=== PATIENT | male | born 1955 | race Caucasian/White ===

== ENCOUNTER 2016-12-25 15:18 | Emergency (ER) | payer OTHER ==
[2016-12-25] MEDS ORDERED: DIPH,PERTUSS(ACELL),TET VAC/PF 0.5 ML DISP.SYRIN IM ONE (15:31)
[2016-12-25] MEDS ORDERED: CEPHALEXIN 250 MG CAPSULE ONE (17:00)
[2016-12-25] MEDS ORDERED: CEPHALEXIN 250 MG CAPSULE PO ONE (17:34)
--- NOTE | 2016-12-25 17:41 | ED Physician Documentation ---
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 The rest of the lac is very superficial. a small area superficial skin appears to be missing. Onset: hours ( there was reportedly very little bleeding.) Timing: still present Severity: mild, moderate - ROS CONST: no problems EYES/ENT: none CVS/RESP: none GI/: none MS/SKIN/LYMPH: none NEURO/PSYCH: denies: headache, fainting, dizziness, tingling, numbness - PAST HX Past History: none Other History: none Surgeries/Procedures: other (cataracts) Immunizations: denies: UTD Allergies/Adverse Reactions: Allergies Allergy/AdvReac Type Severity Reaction Status Date / Time codeine Allergy Abdominal Verified 12/25/16 15:53 Pain Penicillins Allergy Abdominal Verified 12/25/16 15:53 Pain Home Medications: Ambulatory Orders Medication Instructions Recorded Cephalexin [Keflex] 500 mg PO QID #40 capsule 12/25/16 - SOCIAL HX Smoking History: non-smoker Alcohol Use: occasionally Drug Use: none - FAMILY HX Family History: No - VITAL SIGNS Vital Signs: Vital Signs Temp Pulse Resp BP Pulse Ox 98.1 F 89 18 159/99 96 12/25/16 15:54 12/25/16 15:54 12/25/16 15:54 12/25/16 15:54 12/25/16 15:54 - REVIEWED ASSESSMENTS Nursing Assessment Reviewed: Yes Vitals Reviewed: Yes ED Results Lab/Radiology - Orders Orders: ED Orders Category Date Time Status Apply/change dressing NOW Care 12/25/16 16:50 Active Cephalexin [Keflex] Med 12/25/16 17:00 Discontinued 500 mg .ROUTE .STK-MED ONE Cephalexin [Keflex] Med 12/25/16 17:34 Once 500 mg PO NOW ONE Diph,Pertuss(Acell),Tet Vac/Pf [Adacel] Med 12/25/16 15:31 Discontinued 0.5 ml IM .ONCE ONE General Adult Physical Exam - PHYSICAL EXAM GENERAL APPEARANCE: mild distress EENT: eye inspection normal NECK: normal inspection RESPIRATORY: no resp distress, chest non-tender, breath sounds normal. No: wheezes, rales CVS: reg rate & rhythm, heart sounds normal, equal pulses ABDOMEN: soft, non-tender SKIN: warm/dry, normal color. No: cyanosis, diaphoresis, jaundice EXTREMITIES: non-tender (except as above) NEURO: oriented X3, CN's nml as tested, motor nml, sensation nml, mood/affect nml Discharge Clincal Impression: Laceration of right forearm Prescriptions: Cephalexin [Keflex] 500 mg PO QID #40 capsule Referrals: Crys Robles MD [Primary Care Provider] - 2 Days Home Medications: Ambulatory Orders Cephalexin [Keflex] 500 mg PO QID #40 capsule 12/25/16 Condition: Good Disposition: 01 HOME, SELF-CARE Decision to Admit: NO Decision Time: 17:41
[2016-12-25 17:52] VITALS: BP 151/84
== END 2016-12-25 17:43 | disposition home or self-care (01) ==
LOC: ED 15:18
DX: S51.811A Laceration without foreign body of right forearm, initial encounter (principal); W29.3XXA Contact with powered garden and outdoor hand tools and machinery, initial encounter; Y93.9 Activity, unspecified; Y99.9 Unspecified external cause status
CPT/HCPCS: 12034; 90471; 90715; 99284